=== PATIENT | female | born 1995 | race Caucasian/White ===

== ENCOUNTER 2016-10-17 18:47 | Emergency (ER) | payer OTHER ==
--- NOTE | ~2016-10-17 | CT2 ---
[facility] A Service [facility] RADIOLOGY TEXT RESULTS PATIENT: KAILEE RODRIGUEZ LOCATION: SED : [birth year] UNIT #: [id number] AGE: [address]: Mckayla Kimbrough SEX: F ORDER DR: [id number] [place] [id number] E MR#: [id number] Acc #: [id number] NAME: KAILEE RODRIGUEZ. : 1995 SEX: F STUDY DATE/TIME: 10/17/2016 20:12 UNIT: SED ROOM: STUDY DESCRIPTION: CT Abd and Pelv W Cont Attending Physician: Mckayla Kimbrough Pa-C Ordering Physician: Physician Non-Staff Primary Care Physician: Edda Sood Aprn MEDICAL IMAGING REPORT This report is preliminary unless electronic signature is present. EXAM CT scan of the abdomen and pelvis with contrast, 10/17/2016 HISTORY Mid back pain radiating to the chest for 4 days with nausea and asthma. TECHNIQUE Spiral CT was performed through the abdomen and pelvis following intravenous contrast administration only as per clinician request. This CT exam was performed with one or more of the following radiation dose reduction techniques: automatic exposure control, adjustment of mA and/or kV according to patient size, and iterative reconstruction. FINDINGS ABDOMEN: The exam is limited by the lack of oral contrast. The liver, spleen, pancreas, gallbladder and biliary tree, adrenal glands and kidneys are normal. PELVIS FINDINGS: The gut, mesenteric and khari structures are normal. The appendix is normal. Trace free fluid is seen in the pelvis. The lung bases are normal. IMPRESSION Negative. Dictated by... Ayo Haas M.D. THIS IS AN ELECTRONICALLY VERIFIED REPORT [facility] A Service [facility] RADIOLOGY TEXT RESULTS PATIENT: KAILEE RODRIGUEZ LOCATION: SED : [birth year] UNIT #: [id number] AGE: [address]: Mckayla Kimbrough SEX: F ORDER DR: Ayo Haas M.D. at 10/18/2016 10:57 AM MANJU/clyde TD: 10/18/2016 05:01 JOB #: [id number] MEDICAL IMAGING REPORT
[2016-10-17 18:42] LABS: URINE SOURCE CLEAN CATCH
[2016-10-17 18:44] LABS: URINE APPEARANCE HAZY; URINE BILIRUBIN NEG (NEG); URINE BLOOD 3+ (NEG); URINE COLOR YELLOW; URINE GLUCOSE 300 MG/DL (NORM); URINE KETONE NEG (NEG); URINE LEUKOCYTE ESTERASE NEG (NEG); URINE NITRATE NEG (NEG); URINE PROTEIN NEG (NEG); URINE SPECIFIC GRAVITY 1.025 (1.003-1.035)
[2016-10-17 18:46] LABS: MICRO INDICATED? YES
[2016-10-17 18:47] LABS: URINE RBC 100-200 /[HPF] (0-2); URINE WBC 0-2 /[HPF] (0-5)
[~2016-10-17 18:47] MED LIST: ADVIL200 M1 DOB; ALBUTEROL17 GM; ALBUTEROL17 GM INH; AMOXICILLIN PO; AMOXICILLIN875 MG PO; ANTIBIOTIC; AZITHROMYCIN250 MG PO; BENADRYL PO; BENZONATATE PO; CLINDAMYCIN GEL 1%; CORTISPORIN-TC10 ML OT; DICLOFENAC; FLEXERIL10 MG PO; FLONASE16 GM; GLUCOPHAGE XR500 MG; KETOCONAZOLE15 GM TP; MOTRIN PO; MOTRIN600 M1 PO; NAPROSYN500 MG PO; NASONEX17 GM; NO MEDICATIONS; PHENERGAN25 MG PO; PREDNISONE PO; PRILOSEC20 MG PO; PROTONIX PO; RONDEC-DM ORAL30 ML PO; RONDEX-DM SYRU118 ML PO; SUDAFED PO; TYLENOL #3 PO; ZYRTEC-D T1 TAB.SR1 PO; ZYRTEC10 M2 PO; ZYRTEC10 M5; [UNRECOGNIZED DRUG - OTHER]
[2016-10-17 18:48] LABS: CULTURE INDICATED? NO; URINE BACTERIA NEG (NEG); URINE MUCUS PRESENT; URINE SQUAMOUS EPITHELIAL CELL OCCAS /[HPF]
[2016-10-17 19:32] LABS: BASOPHIL# 0.1 X10e3 (0-0.3); BASOPHIL% 0.6 % (0-2.5); EOSINOPHIL# 0.1 X10e3 (0-0.7); EOSINOPHIL% 1.1 % (0.0-7.0); HEMATOCRIT 42.9 % (35.0-45.0); HEMOGLOBIN 13.7 gm/dL (12.0-16.0); LYMPHOCYTE# 3.6 X10e3 (1.0-3.5); LYMPHOCYTE% 29.2 % (17.0-45.0); MEAN CELL VOLUME 84.5 FL (83-96); MEAN CORPUSCULAR HGB CONC 31.9 g/dL (30-36); MEAN PLATELET VOLUME 10.1 FL (6.5-11.5); MONOCYTE# 0.8 X10e3 (0-1.0); MONOCYTE% 6.4 % (3.0-12.0); NEUTROPHIL# 7.7 X10e3 (1.5-7.1); NEUTROPHIL% 62.7 % (40-75); PLATELET COUNT 241 X10e3 (140-420); RED BLOOD COUNT 5.08 X10e (3.90-5.30); RED CELL DISTRIBUTION WIDTH 13.6 % (11.0-15.5); WHITE BLOOD COUNT 12.3 X10e3 (4.0-10.5)
[2016-10-17 19:35] LABS: DIFF IND NO
[2016-10-17 19:50] LABS: ALBUMIN SERUM 4.3 g/dL (3.5-5.0); ALKALINE PHOSPHATASE 72 U/L (32-92); ALT (SGPT) 20 U/L (10-40); AMYLASE 13 U/L (0-46); AST (SGOT) 18 U/L (10-42); BILIRUBIN,TOTAL 0.2 mg/dL (0.2-2.0); BLOOD UREA NITROGEN 19 mg/dL (9-23); BUN/CREATININE RATIO 27.14; CALCIUM SERUM 9.2 mg/dL (8.4-10.2); CARBON DIOXIDE 30 mmol/L (22-31); CHLORIDE 102 mmol/L (100-111); CREATININE SERUM 0.7 mg/dL (0.6-1.4); GLOM FILT RATE Estimated ABOVE60 mL/min (>60); GLUCOSE FASTING 124 mg/dL (70-110); LIPASE 21 U/L (22-51); PROTEIN TOTAL SERUM 7.6 g/dL (6.0-8.3); SODIUM 139 mmol/L (135-145)
== END 2016-10-17 22:01 | disposition home or self-care (01) ==
LOC: SED 18:47
PROVIDERS: Physician Assistant
DX: R10.13 Epigastric pain (principal); J45.909 Unspecified asthma, uncomplicated; Z88.5 Allergy status to narcotic agent; Z91.040 Latex allergy status; Z88.8 Allergy status to other drugs, medicaments and biological substances
CPT/HCPCS: 36415; 74177; 80053; 81003; 82150; 83690; 84703; 85025; 96361; 96374; 96375; 99284; J2270; J2405; Q9967

== ENCOUNTER 2016-11-22 13:58 | Emergency (ER) | payer OTHER ==
[2016-11-22 14:24] LABS: URINE SOURCE CLEAN CATCH
[2016-11-22 14:26] LABS: URINE APPEARANCE CLEAR; URINE BILIRUBIN NEG (NEG); URINE BLOOD NEG (NEG); URINE COLOR YELLOW; URINE GLUCOSE 300 MG/DL (NORM); URINE KETONE NEG (NEG); URINE LEUKOCYTE ESTERASE TRACE (NEG); URINE NITRATE NEG (NEG); URINE PROTEIN NEG (NEG); URINE UROBILINOGEN 0.2 MG/DL (NORM)
[2016-11-22 14:27] LABS: MICRO INDICATED? YES
[2016-11-22 14:39] LABS: CULTURE INDICATED? NO; URINE BACTERIA NEG (NEG); URINE RBC 0-2 /[HPF] (0-2); URINE WBC 0-2 /[HPF] (0-5)
== END 2016-11-22 15:08 | disposition home or self-care (01) ==
LOC: SED 13:58
PROVIDERS: Emergency Medicine
DX: K29.00 Acute gastritis without bleeding (principal); E11.65 Type 2 diabetes mellitus with hyperglycemia; J45.909 Unspecified asthma, uncomplicated; Z91.040 Latex allergy status; Z88.8 Allergy status to other drugs, medicaments and biological substances
CPT/HCPCS: 81003; 82947; 84703; 96372; 99284; J0500

== ENCOUNTER 2017-03-01 16:29 | Emergency (ER) | payer OTHER ==
--- NOTE | ~2017-03-01 | CT71 ---
[facility] A Service [facility] RADIOLOGY TEXT RESULTS PATIENT: KAILEE RODRIGUEZ LOCATION: [facility] : [id number] UNIT #: [id number] AGE: [address]: Troy Forte MD SEX: F ORDER DR: [id number] [facility] [address] [place], [place] [address] [id number] E MR#: [id number] Acc #: [id number] NAME: KAILEE RODRIGUEZ. : 1995 SEX: F STUDY DATE/TIME: 03/01/2017 19:39 UNIT: [facility] ROOM: STUDY DESCRIPTION: CT Head Wo Contrast Attending Physician: Troy Forte M.D. Ordering Physician: Troy Forte M.D. Primary Care Physician: Nguyen Diane MEDICAL IMAGING REPORT This report is preliminary unless electronic signature is present EXAM Head CT without contrast, 03/01/2017 HISTORY Headaches for [address] exam was performed with one or more of the following radiation dose reduction techniques: automatic exposure control, adjustment of mA and/or kV according to patient size, and iterative reconstruction. FINDINGS Axial noncontrast images were obtained from the skull base to the vertex. Ventricular size and configuration are normal. There is no evidence of acute infarct or hemorrhage. There are no extra-axial fluid collections. No mass lesion or mass effect is seen. There are no skull fractures. IMPRESSION Normal noncontrast head CT. Dictated by... Ayo Haas M.D. THIS IS AN ELECTRONICALLY VERIFIED REPORT Ayo Haas M.D. at 03/02/2017 7:22 AM MANJU/clyde TD: 03/02/2017 01:15 JOB #: [id number] MEDICAL IMAGING REPORT [facility] A Service [facility] RADIOLOGY TEXT RESULTS PATIENT: KAILEE RODRIGUEZ LOCATION: [facility] : [id number] UNIT #: [id number] AGE: [address]: Troy Forte MD SEX: F ORDER DR: Page 1 of 1 COPY
== END 2017-03-01 20:50 | disposition home or self-care (01) ==
LOC: CED 16:29
DX: R51 Headache (principal); R11.0 Nausea; J45.909 Unspecified asthma, uncomplicated; Z88.5 Allergy status to narcotic agent; Z88.8 Allergy status to other drugs, medicaments and biological substances
CPT/HCPCS: 70450; 96374; 96375; 99284; J0780; J1200; J1885

== ENCOUNTER 2017-04-12 11:27 | Emergency (ER) | payer OTHER | END 2017-04-12 13:03 | disposition home or self-care (01) | LOC: SED 11:27 | DX: J30.2 Other seasonal allergic rhinitis (principal); J06.9 Acute upper respiratory infection, unspecified; J45.909 Unspecified asthma, uncomplicated; Z91.040 Latex allergy status; Z88.6 Allergy status to analgesic agent; Z88.8 Allergy status to other drugs, medicaments and biological substances; Z79.899 Other long term (current) drug therapy | CPT/HCPCS: 87651; 99283 ==